=== PATIENT | female | born 1995 | race Caucasian/White ===

== ENCOUNTER 2017-08-14 14:13 | Emergency (ER) | payer SELFPAY ==
[~2017-08-14] VITALS: Ht 162.6 cm; Wt 86.0 kg
[2017-08-14 14:30] VITALS: BP 128/88
== END 2017-08-14 16:36 | disposition home or self-care (01) ==
LOC: ED 16:30
DX: J02.8 Acute pharyngitis due to other specified organisms (principal); B97.89 Other viral agents as the cause of diseases classified elsewhere; Z90.49 Acquired absence of other specified parts of digestive tract
CPT/HCPCS: 87081; 87880; 99284

== ENCOUNTER 2018-05-31 11:59 | Emergency (ER) | payer SELFPAY ==
[~2018-05-31] VITALS: Ht 162.6 cm; Wt 90.6 kg
[2018-05-31 12:05] VITALS: BP 133/87
[2018-05-31] MEDS ORDERED: DEXAMETHASONE 4 MG/ML, 1ML PO ONE (12:30)
[2018-05-31] MEDS ORDERED: DIPHENHYDRAMINE 25 MG CAPSULE PO ONE (12:30)
[2018-05-31] MEDS ORDERED: FAMOTIDINE 20 MG TABLET PO ONE (12:30)
[2018-05-31] MEDS ORDERED: DEXAMETHASONE 4 MG/ML, 5ML ONE (12:34)
[2018-05-31] MEDS ORDERED: FAMOTIDINE 20 MG TABLET ONE (12:34)
[2018-05-31] MEDS ORDERED: DIPHENHYDRAMINE 50 MG CAPSULE ONE (12:34)
== END 2018-05-31 13:06 | disposition home or self-care (01) ==
LOC: ED 12:45
DX: S50.862A Insect bite (nonvenomous) of left forearm, initial encounter (principal); S50.861A Insect bite (nonvenomous) of right forearm, initial encounter; W57.XXXA Bitten or stung by nonvenomous insect and other nonvenomous arthropods, initial encounter; Y93.89 Activity, other specified; Y92.89 Other specified places as the place of occurrence of the external cause; Y99.8 Other external cause status
CPT/HCPCS: 99284; J1100; Q0163

== ENCOUNTER 2018-07-21 01:52 | Emergency (ER) | payer SELFPAY ==
[~2018-07-21] VITALS: Ht 162.6 cm; Wt 112.0 kg
[2018-07-21 02:59] VITALS: BP 124/67
== END 2018-07-21 02:31 | disposition home or self-care (01) ==
LOC: ED 02:12
DX: F10.129 Alcohol abuse with intoxication, unspecified (principal); Z72.9 Problem related to lifestyle, unspecified
CPT/HCPCS: 99283